=== PATIENT | female | born 1990 | race Caucasian/White ===

== ENCOUNTER 2021-01-27 17:52 | Emergency (ER) | payer MEDICAID ==
[~2021-01-27] VITALS: Ht 167.6 cm; Wt 73.1 kg
--- NOTE | 2021-01-27 18:23 | NUR ---
BIB [facility] FOR C/O HEADACHE 10/17 AND NAUSEA STARTED 01/24/21. DENIES VOMITING. IN ROOM AND DENIES SOB. RESPIRATION REGULAR AND UNLABORED. WILL CONTINUE TO MONITOR THE PATIENT.
--- NOTE | 2021-01-27 18:23 | NUR ---
SEEN BY LAW MARQUES
[2021-01-27] MEDS ORDERED: SUMATRIPTAN SUCCINATE 6 MG/0.5 ML VIAL SQ ONE ×2 (18:29→18:30)
[2021-01-27] MEDS ORDERED: KETOROLAC TROMETHAMINE INJ 30 MG/ML VIAL IM ONE (18:30)
--- NOTE | 2021-01-27 18:36 | NUR ---
URINE COLLECTED AND SENT TO LAB
--- NOTE | 2021-01-27 18:37 | NUR ---
PT SIGNED WAIVER FORM; PT AWARE OF RISKS VS BENEFITS.
--- NOTE | 2021-01-27 18:38 | NUR ---
PT TAKEN TO CT [facility]IA [facility]
--- NOTE | 2021-01-27 18:47 | NUR ---
PT RETURNETED TO ER BED [address] [facility]
[2021-01-27] MEDS ORDERED: IBUPROFEN 400 MG TABLET ONE (18:53)
[2021-01-27] MEDS ORDERED: SUMATRIPTAN SUCCINATE 25 MG TABLET ONE (18:53)
[2021-01-27] MEDS ORDERED: METOCLOPRAMIDE HCL 10 MG TABLET ONE (18:53)
[2021-01-27] MEDS ORDERED: METOCLOPRAMIDE HCL 10 MG TABLET PO ONE (19:00)
[2021-01-27] MEDS ORDERED: SUMATRIPTAN SUCCINATE 25 MG TABLET PO ONE (19:00)
[2021-01-27] MEDS ORDERED: IBUPROFEN 400 MG TABLET PO ONE (19:00)
--- NOTE | 2021-01-27 19:40 | NUR ---
Patient discharged to home in stable condition. RX Written and verbal after care instructions given. Patient verbalizes understanding of instruction. PT ambulatory with a steady gait
[2021-01-27 19:58] VITALS: BP 134/98
== END 2021-01-27 19:58 | disposition home or self-care (01) ==
LOC: ER 17:57
DX: R51.9 Headache, unspecified (principal); J32.9 Chronic sinusitis, unspecified
CPT/HCPCS: 70450; 84703; 99284; J8597; J3030

== ENCOUNTER 2022-05-16 13:21 | Emergency (ER) | payer MEDICAID ==
[~2022-05-16] VITALS: Ht 172.7 cm; Wt 63.5 kg
--- NOTE | 2022-05-16 13:40 | NUR ---
BIB FAMILY C/O weakness, bodyaches x today. AMBULATORY, PLACED IN BED, AAOX4, BREATHING EVEN AND UNLABORED SATURATING AT 98%RA
--- NOTE | 2022-05-16 14:15 | NUR ---
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
[2022-05-16 14:25] LABS: BILIRUBIN,URINE NEGATIVE (NEGATIVE); COLOR,URINE YELLOW (YELLOW); LEUKOCYTE ESTERASE ,URINE TRACE (NEGATIVE); NITRITE, URINE NEGATIVE (NEGATIVE); PROTEIN,URINE NEGATIVE (NEGATIVE); UGLUCOSE NEGATIVE (NEGATIVE); UROBILINOGEN,URINE 0.2 EU/dL (0.2)
[2022-05-16 14:31] LABS: BASOPHILS % (AUTO) 0.3 % (0.0-2.0); HEMATOCRIT 37 % (33-45); HEMOGLOBIN 12.7 g/dL (11.5-14.8); LYMPHOCYTES # (AUTO) 1.2 K/uL (0.8-4.8); LYMPHOCYTES % (AUTO) 19.6 % (20.0-44.0); MEAN CORPUSCULAR HGB CONC 35 g/dl (31.0-36.0); MEAN CORPUSCULAR VOLUME 88 fL (82-100); MONOCYTES # (AUTO) 0.2 K/uL (0.1-1.30); MONOCYTES % (AUTO) 4.1 % (2.0-12.0); NEUTROPHILS # (AUTO) 4.5 K/uL (1.8-8.9); PLATELET COUNT (AUTO) 176 K/uL (150-450); RED BLOOD CELL COUNT(AUTO) 4.18 MIL/uL (4.0-5.2); WHITE BLOOD COUNT (AUTO) 6.1 K/uL (4.3-11.0)
[2022-05-16 14:39] LABS: CALCIUM, SERUM 8.8 mg/dL (8.5-10.1); CREATININE 0.6 mg/dL (0.6-1.3); POTASSIUM 3.7 mmol/L (3.5-5.1)
[2022-05-16 14:45] LABS: ALBUMIN 3.9 g/dL (3.4-5.0); BILIRUBIN,DIRECT 0.1 mg/dL (0.0-0.2); BILIRUBIN,TOTAL 0.5 mg/dL (0.2-1.0); TOTAL PROTEIN, SERUM 7.1 g/dL (6.4-8.2)
[2022-05-16 15:23] VITALS: BP 128/62
[2022-05-16 15:53] LABS: BACTERIA,URINE RARE /HPF (None Seen)
== END 2022-05-16 15:24 | disposition home or self-care (01) ==
LOC: ER 13:26
DX: R10.31 Right lower quadrant pain (principal)
CPT/HCPCS: 36415; 80048-TC; 80076-TC; 81001; 83690-TC; 84703-TC; 85025-TC